=== PATIENT | female | born 1965 ===

== ENCOUNTER 2021-11-26 08:52 | Outpatient (CLI) | payer BC | END 2021-11-26 08:53 | disposition home or self-care (01) | LOC: LAB 08:52 | PROVIDERS: ATTEND Otolaryngology Sleep Medicine | DX: J32.0 Chronic maxillary sinusitis (principal); J32.1 Chronic frontal sinusitis; J32.2 Chronic ethmoidal sinusitis | CPT/HCPCS: 87102; 87116; 87220 ==